=== PATIENT | female | born 1990 | race Caucasian/White ===

== ENCOUNTER 2017-09-01 16:34 | Emergency (ER) | payer BC ==
[~2017-09-01 16:34] MED LIST: BENZ100 PO; FLUT1SPR5 EACH NARE
[2017-09-01 17:02] VITALS: BP 122/67; PULSE 117; RESP 20; TEMP 101.6; O2SAT 97
[2017-09-01 19:58] VITALS: BP 160/95; PULSE 112; RESP 18; TEMP 100.5; O2SAT 96
[2017-09-01] MEDS ORDERED: KETOROLAC TROMETHAMINE 30 MG/ML (IVP) VIAL IV PUSH ONE (20:15)
[2017-09-01] MEDS ORDERED: ONDANSETRON HCL 4 MG/2 ML VIAL IV ONE (20:15)
[2017-09-01] MEDS ORDERED: SODIUM CHLOR 0.9% 1000 ML INJ 1,000 ML IV SCH ×2 (20:15)
--- NOTE | 2017-09-01 20:56 | RADRPT ---
EXAM DATE/TIME: 09/01/2017 20:30 [place] COMPARISON: No previous studies available for comparison. INDICATIONS : Fever. MEDICAL HISTORY : None. SURGICAL HISTORY : None. ENCOUNTER: Initial ACUITY: 1 day PAIN SCORE: 0/10 LOCATION: Bilateral chest FINDINGS: PA and lateral views of the chest demonstrate the lungs to be symmetrically aerated without evidence of mass, infiltrate or effusion. The cardiomediastinal contours are unremarkable. Osseous structure s are intact. CONCLUSION: Normal examination. German Garcia MD on September 01, 2017 at 20:53 Board Certified Radiologist. This report was verified electronically.
[2017-09-01 21:05] VITALS: BP 145/92; PULSE 92; RESP 16; TEMP 99.4; O2SAT 96
--- NOTE | 2017-09-01 21:19 | PD ---
HPI Chief Complaint: Cold / Flu Symptoms Time Seen by Provider: 20:00 Travel History International Travel<30 days: No Contact w/Intl Traveler<30days: No Traveled to known affect area: No History of Present Illness HPI To 27 year-old woman presents emergent from complaining of fevers chills with a history of 4 days so she with cough cold symptoms, nausea, one episode diarrhea , initially improving but now worsening significantly over the past day or so. Multiple sick contacts at work. No shortness of breath. No chest pain. No other complaints. History Past Medical History Narrative Medical Hypertension Tetanus Vaccination: Unknown Influenza Vaccination: No LMP: 20 DAYS AGO Past Surgical History Surgical History: No Previous Surgery Social History Alcohol Use: No Tobacco Use: No Allergies-Medications (Allergen,Severity, Reaction): Coded Allergies: No Known Allergies (Verified Adverse Reaction, Unknown, 09/01/17) Reported Meds & Prescriptions Reported Meds & Active Scripts Active Tessalon Perles (Benzonatate) 100 Mg Cap 100 Mg PO HS Flonase Allergy Relief Nasal Rum[place] (Fluticasone Nasal [place]son) 50 Mcg/Act [place] 50 Mcg EACH NARE BID Review of Systems Except as stated in HPI: all other systems reviewed are Neg Physical Exam Narrative GENERAL: Well-appearing 27 year-old woman, no acute distress. SKIN: Focused skin assessment warm/dry. HEAD: Atraumatic. Normocephalic. EYES: Pupils equal and round. No scleral icterus. No injection or drainage. ENT: No nasal bleeding or discharge. Mucous membranes pink and moist. NECK: Trachea midline. No JVD. CARDIOVASCULAR: Regular rate and rhythm. No murmur appreciated. RESPIRATORY: No accessory muscle use. Clear to auscultation. Breath sounds equal bilaterally. GASTROINTESTINAL: Abdomen soft, non-tender, nondistended. Hepatic and splenic margins not palpable. MUSCULOSKELETAL: No obvious deformities. No clubbing. No cyanosis. No edema. NEUROLOGICAL: Awake and alert. No obvious cranial nerve deficits. Motor grossly within normal limits. Normal speech. PSYCHIATRIC: Appropriate mood and affect; insight and judgment normal. Data Data Last Documented VS Vital Signs Date Time Temp Pulse Resp B/P (MAP) Pulse Ox O2 Delivery O2 Flow Rate FiO2 09/01/17 21:05 99.4 92 16 145/92 (109) 96 Room Air Orders Orders Influenzae A/B Antigen (09/01/17 20:01) Chest, Pa & Lat (09/01/17 ) Sodium Chlor 0.9% 1000 Ml Inj (Ns 1000 M (09/01/17 20:15) Sodium Chlor 0.9% 1000 Ml Inj (Ns 1000 M (09/01/17 20:15) Ketorolac Inj (Toradol Inj) (09/01/17 20:15) Iv Access Insert/Monitor (09/01/17 20:04) Ondansetron Inj (Zofran Inj) (09/01/17 20:15) [facility] Medical Decision Making Medical Screen Exam Complete: Yes Emergency Medical Condition: Yes Interpretation(s) LABS: Influenza positive for flu B Chest x-ray negative. Differential Diagnosis Influenza, URI, pneumonia, viral syndrome, sepsis, other Narrative Course Medical decision-making new para 27 year-old woman with URI symptoms, high fevers, chills, with some nausea vomiting. Influenza positive for flu B. Looks uncomfortable but nontoxic. Vital signs are little bit abnormal. Improvement with IV fluids. Recommend supportive treatment. Diagnosis Primary Impression: Influenza B Departure Forms: Tests/Procedures, Work Release Enter return to work date: Sep 06, 2017 Additional Instructions: Follow-up with your primary doctor in next 3-5 days if you're not improving. Drink plenty of fluids to stay well-hydrated. Take [id number] ibuprofen or Aleve as a for fever body aches. Return to the emergency department for any worsening trouble breathing, worsening dehydration, worsening abdominal pain, or any other new or worsening symptoms. Med/Other Pt SpecificInfo: No Change to Meds Disposition: 01 DISCHARGE HOME Condition: Stable German Hernandez MD Sep 01, 2017 21:19
[2017-09-01 21:28] VITALS: RESP 16
== END 2017-09-01 21:29 | disposition home or self-care (01) ==
LOC: PHED 16:34
DX: J10.1 Influenza due to other identified influenza virus with other respiratory manifestations (principal)
CPT/HCPCS: 71046; 87804; 96361; 96374; 96375; 99284; J1885; J2405; J7030